=== PATIENT | female | born 1985 | race Caucasian/White ===

== ENCOUNTER 2017-09-25 16:28 | Emergency (ER) | payer BC ==
--- NOTE | 2017-09-25 17:19 | EDM.PDOC ---
ED HPI GENERAL MEDICAL PROBLEM - General Chief Complaint: ENT Problem Stated Complaint: SORE THROAT Time Seen by Provider: 09/25/17 17:11 - History of Present Illness INITIAL COMMENTS - FREE TEXT/NARRATIVE: HISTORY AND PHYSICAL: History of present illness: Patient 32-year-old white female presents with a concern of sore throat and possible strep she states she has a daughter with streptococcal pharyngitis currently. She denies other concern Review of systems: As per history of present illness and below otherwise all systems reviewed and negative. Past medical history: As per history of present illness and as reviewed below otherwise noncontributory. Surgical history: As per history of present illness and as reviewed below otherwise noncontributory. Social history: No reported history of drug or alcohol abuse. Family history: As per history of present illness and as reviewed below otherwise noncontributory. Physical exam: HEENT: Atraumatic, normocephalic, pupils reactive, negative for conjunctival pallor or scleral icterus, mucous membranes moist, throat injected, neck supple , nontender, trachea midline. Lungs: Clear to auscultation, breath sounds equal bilaterally, chest nontender. Heart: S1S2, regular, negative for clicks, rubs, or JVD. Abdomen: Soft, nondistended, nontender. Negative for masses or hepatosplenomegaly. Negative for costovertebral tenderness. Pelvis: Stable nontender. Genitourinary: Deferred. Rectal: Deferred. Extremities: Atraumatic, negative for cords or calf pain. Neurovascular unremarkable. Neuro: Awake, alert, oriented. Cranial nerves II through XII unremarkable. Cerebellum unremarkable. Motor and sensory unremarkable throughout. Exam nonfocal. Diagnostics: Deferred Therapeutics: None Impression: # 1 pharyngitis Definitive disposition and diagnosis as appropriate pending reevaluation and review of above. throat Pain Score (Numeric/FACES): 6 - Related Data Allergies Allergy/AdvReac Type Severity Reaction Status Date / Time codeine Allergy Vomiting Verified 09/25/17 17:08 Home Meds: Home Meds oxyCODONE 5 mg PO ONETIME PRN 09/25/17 [History] ED ROS GENERAL - Review of Systems Review Of Systems: ROS reveals no pertinent complaints other than HPI. ED EXAM, GENERAL - Physical Exam Exam: See Below (The dictation) Course - Vital Signs Text/Narrative:: Patient declined any diagnostics states she prefers empiric treatment light exposure and history of strep in the past. Last Recorded V/S: Last Vital Signs Temp 37.0 C 09/25/17 17:09 Pulse 105 H 09/25/17 17:09 Resp 16 09/25/17 17:09 BP 133/83 09/25/17 17:09 Pulse Ox 98 09/25/17 17:09 Departure - Departure Time of Disposition: 17:18 Disposition: Home, Self-Care 01 Condition: Good Clinical Impression: Pharyngitis - Discharge Information Referrals: PCP,None [Primary Care Provider] - Additional Instructions: The following information is given to patients seen in the emergency department who are being discharged to home. This information is to outline your options for follow-up care. We provide all patients seen in our emergency department with a follow-up referral. The need for follow-up, as well as the timing and circumstances, are variable depending upon the specifics of your emergency department visit. If you don't have a primary care physician on staff, we will provide you with a referral. We always advise you to contact your personal physician following an emergency department visit to inform them of the circumstance of the visit and for follow-up with them and/or the need for any referrals to a consulting specialist. The emergency department will also refer you to a specialist when appropriate. This referral assures that you have the opportunity for followup care with a specialist. All of these measure are taken in an effort to provide you with optimal care, which includes your followup. Under all circumstances we always encourage you to contact your private physician who remains a resource for coordinating your care. When calling for followup care, please make the office aware that this follow-up is from your recent emergency room visit. If for any reason you are refused follow-up, please contact the [facility] emergency department at and asked to speak to the emergency department charge nurse. Augmentin is prescribed Motrin/Tylenol as directed follow-up primary medical doctor 1-2 days return as needed as discussed
== END 2017-09-25 17:51 | disposition home or self-care (01) ==
LOC: MW.ED 16:28
DX: J02.9 Acute pharyngitis, unspecified (principal); Z88.5 Allergy status to narcotic agent
CPT/HCPCS: 99282; 99283

== ENCOUNTER 2020-03-27 02:53 | Day surgery (SDC) | payer BC, SELFPAY ==
[2020-03-27] MEDS ORDERED: Ondansetron 4 MG/2 ML SDV IVPUSH ONE (03:06)
[2020-03-27] MEDS ORDERED: fentaNYL 50 MCG/ML SDV IVPUSH ONE ×2 (03:06→05:22)
[2020-03-27] MEDS ORDERED: Sodium Chloride 0.9% 10 ML Syringe FLUSH PRN (03:06)
[2020-03-27] MEDS ORDERED: Lactated Ringers 1,000 ML IV ONE (03:06)
[2020-03-27] MEDS ORDERED: Sodium Chloride 0.9% 2.5 ML Syringe FLUSH PRN (03:06)
--- NOTE | 2020-03-27 03:08 | EDM.PDOC ---
ED HPI GENERAL MEDICAL PROBLEM - General Chief Complaint: Abdominal Pain Stated Complaint: ABDOMINAL PAIN Time Seen by Provider: 03/27/20 02:57 Source of Information: Reports: Patient History Limitations: Reports: No Limitations - History of Present Illness INITIAL COMMENTS - FREE TEXT/NARRATIVE: 34-year-old female past medical history of chronic back pain presenting with abdominal pain. Patient reports the onset of generalized abdominal pain around 6:00 this evening while at rest. Pain is constant, nothing makes it better or worse. Described as "aching". Rated as 10 out of 10. No history of prior pain. No self treatment prior to arrival. Complains of mild nausea but no emesis. Denies fever, hematemesis, diarrhea, rectal bleeding, dysuria, urinary frequency, hematuria, vaginal bleeding or discharge, sick contacts or international travel. Lower Abdomen Pain Score (Numeric/FACES): 8 - Related Data Allergies Allergy/AdvReac Type Severity Reaction Status Date / Time codeine Allergy Vomiting Verified 03/27/20 06:09 Home Meds: Home Meds oxyCODONE 10 mg PO Q6HR PRN 09/25/17 [History] Ondansetron [Ondansetron ODT] 4 mg PO ASDIRECTED PRN 03/27/20 [History] Rizatriptan Benzoate [Rizatriptan] 10 mg PO ASDIRECTED PRN 03/27/20 [History] Past Medical History Cardiovascular History: Reports: Other (See Below) Other Cardiovascular History: palpitations Respiratory History: Reports: Other (See Below) Other Respiratory History: seasonal allergies [employer] History: Reports: Musculoskeletal History: Reports: Back Pain, Chronic - Infectious Disease History Infectious Disease History: Reports: None - Past Surgical History Female Surgical History: Reports: D&C Social & Family History - Family History Family Medical History: Noncontributory - Caffeine Use Caffeine Use: Reports: None ED ROS GENERAL - Review of Systems Review Of Systems: See Below Constitutional: Denies: Fever, Chills HEENT: Reports: No Symptoms Respiratory: Denies: Shortness of Breath Cardiovascular: Denies: Chest Pain Endocrine: Reports: No Symptoms GI/Abdominal: Reports: Abdominal Pain, Nausea. Denies: Black Stool, Bloody Stool, Constipation, Diarrhea, Distension, Hematemesis, Hematochezia, Melena, Vomiting : Denies: Discharge, Dysuria, Flank Pain, Frequency, Hematuria, Pain Musculoskeletal: Denies: Back Pain Skin: Denies: Lesions Neurological: Denies: Headache Psychiatric: Reports: No Symptoms ED EXAM, GI/ABD - Physical Exam Exam: See Below Text/Narrative:: Vital signs reviewed. Nursing notes reviewed. Constitutional: Awake, alert, appears uncomfortable, tearful. Head: Normocephalic, atraumatic. Eyes: EOMI, conjunctiva normal, no discharge, no scleral icterus. Ears, Nose, Throat: External ears and nose normal, moist oral mucosa. Cardiovascular: 2+ radial pulse, capillary refill less than 2 seconds. Pulmonary: normal work of breathing, no accessory muscle use. Abdomen/GI: Soft, mild diffuse tenderness, nondistended, no guarding or rigidity, no masses. No tenderness to McBurney's point, negative Agudelo sign. Musculoskeletal: No deformities. Integumentary: Appropriate color for ethnicity, warm, dry, no pallor or jaundice, no rash. Neurologic: Alert, answering questions appropriately, normal speech, no facial droop, moving all extremities well. Psychiatric: normal effect Course - Vital Signs Text/Narrative:: Patient hemodynamically stable, afebrile, well-appearing, looks nontoxic. Differential diagnosis includes but is not limited to: Appendicitis, perforation, intra-abdominal infection, mesenteric ischemia, colitis, bowel obstruction, ileus, ectopic , epiploic appendagitis, acute ch olecystitis, biliary colic, pancreatitis, AAA, UTI, pyelonephritis, etc. Blood cultures drawn x2. Labs show leukocytosis with neutrophilic predominance. Normal lactate. Negative . Normal LFTs and electrolytes. Urinalysis bland. CT abdomen/pelvis is consistent with uncomplicated appendicitis. Patient made n.p.o., given IV Zosyn. Pain well controlled after initial IV fentanyl and nausea resolved after Zofran. I paged the on-call surgeon Dr. Kadie White who requested that the patient be placed on same-day surgery status. She will be transferred to an inpatient room awaiting surgical evaluation with anticipation of likely operative intervention later today. Last Recorded V/S: Last Vital Signs Temp 36.0 C L 03/27/20 03:04 Pulse 91 03/27/20 05:00 Resp 14 03/27/20 05:00 BP 118/80 03/27/20 05:00 Pulse Ox 98 03/27/20 05:00 - Orders/Labs/Meds Orders: Active Orders 24 hr Category Date Time Status Admission Status [Patient Status] [ADT] Stat ADT 03/27/20 05:11 Active Pulse Oximetry [RC] ASDIRECTED Care 03/27/20 03:06 Active NPO [Nothing Per Oral Diet] [DIET] Diet 03/27/20 Breakfast Active Nothing per Oral Now Diet [DIET] Diet 03/27/20 Breakfast Active CULTURE BLOOD [BC] Stat Lab 03/27/20 03:48 Received CULTURE BLOOD [BC] Stat Lab 03/27/20 04:05 Results HYDROmorphone [Dilaudid] Med 03/27/20 05:22 Active 0.5 mg IVPUSH Q1H PRN Lactated Ringers [Ringers, Lactated] 1,000 ml Med 03/27/20 05:30 Active IV ASDIRECTED Ondansetron [Zofran] Med 03/27/20 05:56 Active 4 mg IVPUSH Q6H PRN Sodium Chloride 0.9% [Saline Flush] Med 03/27/20 03:06 Active 10 ml FLUSH ASDIRECTED PRN Sodium Chloride 0.9% [Saline Flush] Med 03/27/20 03:06 Active 2.5 ml FLUSH ASDIRECTED PRN Blood Culture x2 Reflex Set [OM.PC] Stat Oth 03/27/20 03:36 Ordered Saline Lock Insert [OM.PC] Stat Oth 03/27/20 03:06 Ordered Medication Orders Hydromorphone HCl (Dilaudid) 0.5 mg IVPUSH Q1H PRN PRN Reason: Abdominal Pain Lactated Ringer's (Ringers, Lactated) 1,000 mls @ 125 mls/hr IV ASDIRECTED [facility] Last Admin: 03/27/20 06:17 Dose: 125 mls/hr Documented by: GEORGI Ondansetron HCl (Zofran) 4 mg IVPUSH Q6H PRN PRN Reason: Nausea/Vomiting Sodium Chloride (Saline Flush) 10 ml FLUSH ASDIRECTED PRN PRN Reason: Keep Vein Open Sodium Chloride (Saline Flush) 2.5 ml FLUSH ASDIRECTED PRN PRN Reason: Keep Vein Open Labs: Laboratory Tests 03/27/20 03/27/20 03/27/20 Range/Units 03:10 03:22 03:22 WBC 17.66 H (4.0-11.0) K/uL RBC 4.41 (4.30-5.90) M/uL Hgb 13.9 (12.0-16.0) g/dL Hct 41.7 (36.0-46.0) % MCV 94.6 (80.0-98.0) fL MCH 31.5 (27.0-32.0) pg MCHC 33.3 (31.0-37.0) g/dL RDW Std Deviation 41.7 (28.0-62.0) fl RDW Coeff of Anatoliy 12 (11.0-15.0) % Plt Count 258 (150-400) K/uL MPV 11.10 (7.40-12.00) fL Neut % (Auto) 86.4 H (48.0-80.0) % Lymph % (Auto) 7.0 L (16.0-40.0) % [place] % (Auto) 5.9 (0.0-15.0) % Eos % (Auto) 0.5 (0.0-7.0) % Baso % (Auto) 0.2 (0.0-1.5) % Neut # (Auto) 15.3 H (1.4-5.7) K/uL Lymph # (Auto) 1.2 (0.6-2.4) K/uL [place] # (Auto) 1.1 H (0.0-0.8) K/uL Eos # (Auto) 0.1 (0.0-0.7) K/uL Baso # (Auto) 0.0 (0.0-0.1) K/uL Nucleated RBC % 0.0 /100WBC Nucleated RBCs # 0 K/uL Lactate 1.2 (0.20-2.00) mmol/L Sodium (136-145) mmol/L Potassium (3.5-5.1) mmol/L Chloride (98-107) mmol/L Carbon Dioxide (21.0-32.0) mmol/L BUN (7.0-18.0) mg/dL Creatinine (0.6-1.0) mg/dL Est Cr Clr Drug Dosing mL/min Estimated GFR (MDRD) ml/min Glucose (74-106) mg/dL Calcium (8.5-10.1) mg/dL Total Bilirubin (0.2-1.0) mg/dL AST (15-37) IU/L ALT (14-63) IU/L Alkaline Phosphatase (46-116) U/L Total Protein (6.4-8.2) g/dL Albumin (3.4-5.0) g/dL Globulin (2.6-4.0) g/dL Albumin/Globulin Ratio (0.9-1.6) Lipase (73-393) U/L HCG, Qual (NEG) Urine Color YELLOW Urine Appearance CLEAR Urine pH 6.5 (5.0-8.0) Ur Specific [place] 1.025 (1.001-1.035) Urine Protein NEGATIVE (NEGATIVE) mg/dL Urine Glucose (UA) NEGATIVE (NEGATIVE) mg/dL Urine Ketones NEGATIVE (NEGATIVE) mg/dL Urine Occult Blood NEGATIVE (NEGATIVE) Urine Nitrite NEGATIVE (NEGATIVE) Urine Bilirubin NEGATIVE (NEGATIVE) Urine Urobilinogen 0.2 (<2.0) EU/dL Ur Leukocyte Esterase NEGATIVE (NEGATIVE) SARS-CoV-2 RNA (RT-PCR) (NEGATIVE) Blood Type Antibody Screen 03/27/20 03/27/20 03/27/20 Range/Units 03:22 03:22 05:20 WBC (4.0-11.0) K/uL RBC (4.30-5.90) M/uL Hgb (12.0-16.0) g/dL Hct (36.0-46.0) % MCV (80.0-98.0) fL MCH (27.0-32.0) pg MCHC (31.0-37.0) g/dL RDW Std Deviation (28.0-62.0) fl RDW Coeff of Anatoliy (11.0-15.0) % Plt Count (150-400) K/uL MPV (7.40-12.00) fL Neut % (Auto) (48.0-80.0) % Lymph % (Auto) (16.0-40.0) % Sierra % (Auto) (0.0-15.0) % Eos % (Auto) (0.0-7.0) % Baso % (Auto) (0.0-1.5) % Neut # (Auto) (1.4-5.7) K/uL Lymph # (Auto) (0.6-2.4) K/uL Sierra # (Auto) (0.0-0.8) K/uL Eos # (Auto) (0.0-0.7) K/uL Baso # (Auto) (0.0-0.1) K/uL Nucleated RBC % /100WBC Nucleated RBCs # K/uL Lactate (0.20-2.00) mmol/L Sodium 140 (136-145) mmol/L Potassium 3.5 (3.5-5.1) mmol/L Chloride 105 (98-107) mmol/L Carbon Dioxide 25.7 (21.0-32.0) mmol/L BUN 7 (7.0-18.0) mg/dL Creatinine 0.8 (0.6-1.0) mg/dL Est Cr Clr Drug Dosing 75.48 mL/min Estimated GFR (MDRD) > 60.0 ml/min Glucose 105 (74-106) mg/dL Calcium 8.2 L (8.5-10.1) mg/dL Total Bilirubin 0.3 (0.2-1.0) mg/dL AST 12 L (15-37) IU/L ALT 16 (14-63) IU/L Alkaline Phosphatase 70 (46-116) U/L Total Protein 6.8 (6.4-8.2) g/dL Albumin 3.8 (3.4-5.0) g/dL Globulin 3.0 (2.6-4.0) g/dL Albumin/Globulin Ratio 1.3 (0.9-1.6) Lipase 40 L (73-393) U/L HCG, Qual NEGATIVE (NEG) Urine Color Urine Appearance Urine pH (5.0-8.0) Ur Specific [place] (1.001-1.035) Urine Protein (NEGATIVE) mg/dL Urine Glucose (UA) (NEGATIVE) mg/dL Urine Ketones (NEGATIVE) mg/dL Urine Occult Blood (NEGATIVE) Urine Nitrite (NEGATIVE) Urine Bilirubin (NEGATIVE) Urine Urobilinogen (<2.0) EU/dL Ur Leukocyte Esterase (NEGATIVE) SARS-CoV-2 RNA (RT-PCR) (NEGATIVE) Blood Type O POSITIVE Antibody Screen NEGATIVE 07/02/20 Range/Units 05:20 WBC (4.0-11.0) K/uL RBC (4.30-5.90) M/uL Hgb (12.0-16.0) g/dL Hct (36.0-46.0) % MCV (80.0-98.0) fL MCH (27.0-32.0) pg MCHC (31.0-37.0) g/dL RDW Std Deviation (28.0-62.0) fl RDW Coeff of Anatoliy (11.0-15.0) % Plt Count (150-400) K/uL MPV (7.40-12.00) fL Neut % (Auto) (48.0-80.0) % Lymph % (Auto) (16.0-40.0) % [place] % (Auto) (0.0-15.0) % Eos % (Auto) (0.0-7.0) % Baso % (Auto) (0.0-1.5) % Neut # (Auto) (1.4-5.7) K/uL Lymph # (Auto) (0.6-2.4) K/uL Sierra # (Auto) (0.0-0.8) K/uL Eos # (Auto) (0.0-0.7) K/uL Baso # (Auto) (0.0-0.1) K/uL Nucleated RBC % /100WBC Nucleated RBCs # K/uL Lactate (0.20-2.00) mmol/L Sodium (136-145) mmol/L Potassium (3.5-5.1) mmol/L Chloride (98-107) mmol/L Carbon Dioxide (21.0-32.0) mmol/L BUN (7.0-18.0) mg/dL Creatinine (0.6-1.0) mg/dL Est Cr Clr Drug Dosing mL/min Estimated GFR (MDRD) ml/min Glucose (74-106) mg/dL Calcium (8.5-10.1) mg/dL Total Bilirubin (0.2-1.0) mg/dL AST (15-37) IU/L ALT (14-63) IU/L Alkaline Phosphatase (46-116) U/L Total Protein (6.4-8.2) g/dL Albumin (3.4-5.0) g/dL Globulin (2.6-4.0) g/dL Albumin/Globulin Ratio (0.9-1.6) Lipase (73-393) U/L HCG, Qual (NEG) Urine Color Urine Appearance Urine pH (5.0-8.0) Ur Specific [place] (1.001-1.035) Urine Protein (NEGATIVE) mg/dL Urine Glucose (UA) (NEGATIVE) mg/dL Urine Ketones (NEGATIVE) mg/dL Urine Occult Blood (NEGATIVE) Urine Nitrite (NEGATIVE) Urine Bilirubin (NEGATIVE) Urine Urobilinogen (<2.0) EU/dL Ur Leukocyte Esterase (NEGATIVE) SARS-CoV-2 RNA (RT-PCR) NEGATIVE (NEGATIVE) Blood Type Antibody Screen Meds: Medications Generic Name Dose Route Start Last Admin Trade Name Heidi PRN Reason Stop Dose Admin Hydromorphone HCl 0.5 mg 03/27/20 05:22 Dilaudid IVPUSH Q1H PRN Abdominal Pain Lactated Ringer's 1,000 mls @ 125 mls/hr 03/27/20 05:30 03/27/20 06:17 Ringers, Lactated IV 125 mls/hr ASDIRECTED JOSEPH Administration Ondansetron HCl 4 mg 03/27/20 05:56 Zofran IVPUSH Q6H PRN Nausea/Vomiting Sodium Chloride 10 ml 03/27/20 03:06 Saline Flush FLUSH ASDIRECTED PRN Keep Vein Open Sodium Chloride 2.5 ml 03/27/20 03:06 Saline Flush FLUSH ASDIRECTED PRN Keep Vein Open Discontinued Medications Generic Name Dose Route Start Last Admin Trade Name Heidi PRN Reason Stop Dose Admin Fentanyl 50 mcg 03/27/20 03:06 03/27/20 03:23 Fentanyl IVPUSH 03/27/20 03:07 50 mcg ONETIME ONE Administration Fentanyl 50 mcg 03/27/20 05:22 03/27/20 05:28 Fentanyl IVPUSH 03/27/20 05:23 50 mcg ONETIME ONE Administration Fentanyl Confirm 03/27/20 05:23 03/27/20 05:30 Fentanyl Administered 03/27/20 05:24 Not Given Dose 50 mcg .ROUTE .STK-MED ONE Lactated Ringer's 1,000 mls @ 999 mls/hr 03/27/20 03:06 03/27/20 03:19 Ringers, Lactated IV 03/27/20 04:06 999 mls/hr .BOLUS ONE Administration Piperacillin Sod/Tazobactam 50 mls @ 100 mls/hr 03/27/20 05:04 03/27/20 05:27 Sod 3.375 gm/ Sodium Chloride IV 03/27/20 05:33 100 mls/hr ONETIME ONE Administration Iopamidol 65 ml 03/27/20 05:51 03/27/20 05:53 Isovue-[id number] (76%) IVPUSH 03/27/20 05:52 65 ml ONETIME STA Administration Ondansetron HCl 4 mg 03/27/20 03:06 03/27/20 03:19 Zofran IVPUSH 03/27/20 03:07 4 mg ONETIME ONE Administration Departure - Departure Time of Disposition: 05:12 Disposition: Refer to Observation Condition: Good Clinical Impression: Acute appendicitis Qualifiers: Acute appendicitis type: unspecified acute appendicitis type Qualified Code(s): K35.80 - Unspecified acute appendicitis - Discharge Information Sepsis Event Note (ED) - Evaluation Sepsis Screening Result: No Definite Risk - Focused Exam Vital Signs: Vital Signs Temp Pulse Resp BP Pulse Ox 03/27/20 05:00 91 14 118/80 98 03/27/20 03:04 36.0 C L 93 18 128/93 H 100 - My Orders Last 24 Hours: My Active Orders 03/27/20 03:06 Pulse Oximetry [RC] ASDIRECTED Sodium Chloride 0.9% [Saline Flush] 10 ml FLUSH ASDIRECTED PRN Sodium Chloride 0.9% [Saline Flush] 2.5 ml FLUSH ASDIRECTED PRN Saline Lock Insert [OM.PC] Stat 03/27/20 03:36 Blood Culture x2 Reflex Set [OM.PC] Stat 03/27/20 03:48 CULTURE BLOOD [BC] Stat 03/27/20 04:05 CULTURE BLOOD [BC] Stat 03/27/20 05:11 Admission Status [Patient Status] [ADT] Stat 03/27/20 Breakfast NPO [Nothing Per Oral Diet] [DIET] - Assessment/Plan Last 24 Hours: My Active Orders 03/27/20 03:06 Pulse Oximetry [RC] ASDIRECTED Sodium Chloride 0.9% [Saline Flush] 10 ml FLUSH ASDIRECTED PRN Sodium Chloride 0.9% [Saline Flush] 2.5 ml FLUSH ASDIRECTED PRN Saline Lock Insert [OM.PC] Stat 03/27/20 03:36 Blood Culture x2 Reflex Set [OM.PC] Stat 03/27/20 03:48 CULTURE BLOOD [BC] Stat 03/27/20 04:05 CULTURE BLOOD [BC] Stat 03/27/20 05:11 Admission Status [Patient Status] [ADT] Stat 03/27/20 Breakfast NPO [Nothing Per Oral Diet] [DIET]
[2020-03-27 03:48] LABS: BLOOD UREA NITROGEN,BUN 7 mg/dL (7.0-18.0); CARBON DIOXIDE,CO2 25.7 mmol/L (21.0-32.0); CHLORIDE,CL 105 mmol/L (98-107); GLUCOSE RANDOM 105 mg/dL (74-106); LIPASE 40 U/L (73-393); POTASSIUM,K 3.5 mmol/L (3.5-5.1); SODIUM,NA 140 mmol/L (136-145)
--- NOTE | 2020-03-27 04:59 | CT ---
INDICATION: Generalized abdominal pain TECHNIQUE: CT Abdomen and pelvis with i.v. contrast. Coronal and sagittal reformats were obtained. CONTRAST: 65 mL Isovue 370 COMPARISON: None FINDINGS: Lower chest: Unremarkable. Liver: Unremarkable. Spleen: Unremarkable. Pancreas: Unremarkable. Gallbladder: Unremarkable. Kidney: Unremarkable. No kidney or ureteral stones or obstruction seen. Adrenal: Unremarkable. Bowel: Unremarkable. The appendix is distended measuring 11 mm. There is moderate wall thickening and surrounding inflammatory changes noted. No periappendiceal abscess is seen. Vascular: Unremarkable. Lymph: Unremarkable. Peritoneum: Unremarkable. No pneumoperitoneum is seen. Trace amount of ascites is present and is likely physiologic in origin. Pelvis: Unremarkable. Soft tissue: Unremarkable. Bone: Unremarkable for age. IMPRESSION: 1. The appendix is distended measuring 11 mm. There is moderate wall thickening and surrounding inflammatory changes noted. No periappendiceal abscess is seen. These findings are consistent with acute appendicitis. Dictated by Hieu Sauceda MD @ 03/27/2020 4:59:02 AM Please note that all CT scans at this facility use dose modulation, iterative reconstruction, and/or weight-based dosing when appropriate to reduce radiation dose to as low as reasonably achievable. Dictated by: Hieu Sauceda MD @ 03/27/2020 04:59:08 (Electronically Signed)
[2020-03-27] MEDS ORDERED: Piperacillin/Tazobactam 3.375 GM in Sodium Chloride 0.9% 50 ML IV ONE (05:04)
[2020-03-27] MEDS ORDERED: HYDROmorphone 1 MG/ML Syringe IVPUSH PRN ×2 (05:22→12:52)
[2020-03-27] MEDS ORDERED: fentaNYL 50 MCG/ML SDV ONE (05:23)
[2020-03-27] MEDS ORDERED: Lactated Ringers 1,000 ML IV SCH (05:30)
[2020-03-27] MEDS ORDERED: Ondansetron 4 MG/2 ML SDV IVPUSH SCH (05:30)
[2020-03-27] MEDS ORDERED: Iopamidol 755 Mg/ML 100 ML Bottle IVPUSH STA (05:51)
[2020-03-27] MEDS ORDERED: Ondansetron 4 MG/2 ML SDV IVPUSH PRN (05:56)
[2020-03-27] MEDS ORDERED: fentaNYL 100 MCG/2 ML SDV IVPUSH PRN (08:00)
--- NOTE | 2020-03-27 08:24 | PCM.PREANE ---
Preanesthetic Assessment - Anesthesia/Transfusion/Family Hx Anesthesia History: Prior Anesthesia Without Reaction Family History of Anesthesia Reaction: No Transfusion History: Prior Transfusion Without Reaction - Review of Systems General: Other (chronic low back pain without a diagnosis, receiving oxycodone 5 mg, 10 tabs/day from physician in [place]. ) Pulmonary: No Symptoms Cardiovascular: No Symptoms Gastrointestinal: Abdominal Pain - Physical Assessment NPO Status Date: 03/26/20 Vital Signs: Last Vital Signs Temp 97.5 F 03/27/20 08:00 Pulse 69 03/27/20 08:00 Resp 12 03/27/20 08:00 BP 98/56 L 03/27/20 08:00 Pulse Ox 98 03/27/20 08:00 Height: 5 ft 1 in Weight: 49.4 kg ASA Class: 2 Mental Status: Alert & Oriented x3 Airway Class: Mallampati = 2 Dentition: Reports: Normal Dentition ROM/Head Extension: Full Lungs: Clear to Auscultation, Normal Respiratory Effort Cardiovascular: Regular Rate, Regular Rhythm - Lab Values: Laboratory Last Values WBC 17.66 K/uL (4.0-11.0) H 03/27/20 03:22 RBC 4.41 M/uL (4.30-5.90) 03/27/20 03:22 Hgb 13.9 g/dL (12.0-16.0) 03/27/20 03:22 Hct 41.7 % (36.0-46.0) 03/27/20 03:22 MCV 94.6 fL (80.0-98.0) 03/27/20 03:22 MCH 31.5 pg (27.0-32.0) 03/27/20 03:22 MCHC 33.3 g/dL (31.0-37.0) 03/27/20 03:22 RDW Std Deviation 41.7 fl (28.0-62.0) 03/27/20 03:22 RDW Coeff of Anatoliy 12 % (11.0-15.0) 03/27/20 03:22 Plt Count 258 K/uL (150-400) 03/27/20 03:22 MPV 11.10 fL (7.40-12.00) 03/27/20 03:22 Neut % (Auto) 86.4 % (48.0-80.0) H 03/27/20 03:22 Lymph % (Auto) 7.0 % (16.0-40.0) L 03/27/20 03:22 [place] % (Auto) 5.9 % (0.0-15.0) 03/27/20 03:22 Eos % (Auto) 0.5 % (0.0-7.0) 03/27/20 03:22 Baso % (Auto) 0.2 % (0.0-1.5) 03/27/20 03:22 Neut # (Auto) 15.3 K/uL (1.4-5.7) H 03/27/20 03:22 Lymph # (Auto) 1.2 K/uL (0.6-2.4) 03/27/20 03:22 [place] # (Auto) 1.1 K/uL (0.0-0.8) H 03/27/20 03:22 Eos # (Auto) 0.1 K/uL (0.0-0.7) 03/27/20 03:22 Baso # (Auto) 0.0 K/uL (0.0-0.1) 03/27/20 03:22 Nucleated RBC % 0.0 /100WBC 03/27/20 03:22 Nucleated RBCs # 0 K/uL 03/27/20 03:22 Lactate 1.2 mmol/L (0.20-2.00) 03/27/20 03:22 Sodium 140 mmol/L (136-145) 03/27/20 03:22 Potassium 3.5 mmol/L (3.5-5.1) 03/27/20 03:22 Chloride 105 mmol/L (98-107) 03/27/20 03:22 Carbon Dioxide 25.7 mmol/L (21.0-32.0) 03/27/20 03:22 BUN 7 mg/dL (7.0-18.0) 03/27/20 03:22 Creatinine 0.8 mg/dL (0.6-1.0) 03/27/20 03:22 Est Cr Clr Drug Dosing 75.48 mL/min 03/27/20 03:22 Estimated GFR (MDRD) > 60.0 ml/min 03/27/20 03:22 Glucose 105 mg/dL (74-106) 03/27/20 03:22 Calcium 8.2 mg/dL (8.5-10.1) L 03/27/20 03:22 Total Bilirubin 0.3 mg/dL (0.2-1.0) 03/27/20 03:22 AST 12 IU/L (15-37) L 03/27/20 03:22 ALT 16 IU/L (14-63) 03/27/20 03:22 Alkaline Phosphatase 70 U/L (46-116) 03/27/20 03:22 Total Protein 6.8 g/dL (6.4-8.2) 03/27/20 03:22 Albumin 3.8 g/dL (3.4-5.0) 03/27/20 03:22 Globulin 3.0 g/dL (2.6-4.0) 03/27/20 03:22 Albumin/Globulin Ratio 1.3 (0.9-1.6) 03/27/20 03:22 Lipase 40 U/L (73-393) L 03/27/20 03:22 HCG, Qual NEGATIVE (NEG) 03/27/20 03:22 Urine Color YELLOW 03/27/20 03:10 Urine Appearance CLEAR 03/27/20 03:10 Urine pH 6.5 (5.0-8.0) 03/27/20 03:10 Ur Specific [place] 1.025 (1.001-1.035) 03/27/20 03:10 Urine Protein NEGATIVE mg/dL (NEGATIVE) 03/27/20 03:10 Urine Glucose (UA) NEGATIVE mg/dL (NEGATIVE) 03/27/20 03:10 Urine Ketones NEGATIVE mg/dL (NEGATIVE) 03/27/20 03:10 Urine Occult Blood NEGATIVE (NEGATIVE) 03/27/20 03:10 Urine Nitrite NEGATIVE (NEGATIVE) 03/27/20 03:10 Urine Bilirubin NEGATIVE (NEGATIVE) 03/27/20 03:10 Urine Urobilinogen 0.2 EU/dL (<2.0) 03/27/20 03:10 Ur Leukocyte Esterase NEGATIVE (NEGATIVE) 03/27/20 03:10 SARS-CoV-2 RNA (RT-PCR) NEGATIVE (NEGATIVE) 03/27/20 05:20 Blood Type O POSITIVE 03/27/20 05:20 Antibody Screen NEGATIVE 03/27/20 05:20 - Allergies Allergies/Adverse Reactions: Allergies Allergy/AdvReac Type Severity Reaction Status Date / Time codeine Allergy Vomiting Verified 03/27/20 06:09 - Blood Blood Available: No - Acknowledgements Anesthesia Type Planned: General Anesthesia Pt an Appropriate Candidate for the Planned Anesthesia: Yes Alternatives and Risks of Anesthesia Discussed w Pt/Guardian: Yes Pt/Guardian Understands and Agrees with Anesthesia Plan: Yes Additional Comments: PMH: acute appendicitis, opioid use disorder PLAN: get, use ketamine, iv aceta, NSAIDs for pain, PreAnesthesia Questionnaire HEENT History: Reports: None Cardiovascular History: Reports: Other (See Below) Other Cardiovascular History: palpitations Respiratory History: Reports: Other (See Below) Other Respiratory History: seasonal allergies Gastrointestinal History: Reports: None Genitourinary History: Reports: Other (See Below) Other Genitourinary History: Several D&Cs 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: Musculoskeletal History: Reports: Back Pain, Chronic Neurological History: Reports: None Psychiatric History: Reports: None Endocrine/Metabolic History: Reports: None Hematologic History: Reports: None Immunologic History: Reports: None Oncologic (Cancer) History: Reports: None Dermatologic History: Reports: None - Infectious Disease History Infectious Disease History: Reports: None - Past Surgical History Female Surgical History: Reports: D&C - SUBSTANCE USE Smoking Status *Q: Current Every Day Smoker Tobacco Use Within Last Twelve Months: Cigarettes Second Hand Smoke Exposure: Yes Recreational Drug Use History: No - HOME MEDS Home Medications: Home Meds oxyCODONE 10 mg PO Q6HR PRN 09/25/17 [History] Ondansetron [Ondansetron ODT] 4 mg PO ASDIRECTED PRN 03/27/20 [History] Rizatriptan Benzoate [Rizatriptan] 10 mg PO ASDIRECTED PRN 03/27/20 [History] - CURRENT (IN HOUSE) MEDS Current Meds: Current Medications Fentanyl (Sublimaze) 50 mcg IVPUSH Q5M PRN PRN Reason: Pain (severe 7-10) Stop: 03/28/20 08:00 Hydromorphone HCl (Dilaudid) 0.5 mg IVPUSH Q1H PRN PRN Reason: Abdominal Pain Last Admin: 03/27/20 07:52 Dose: 0.5 mg Documented by: Lactated Ringer's (Ringers, Lactated) 1,000 mls @ 125 mls/hr IV ASDIRECTED JOSEPH Last Admin: 03/27/20 06:17 Dose: 125 mls/hr Documented by: Ondansetron HCl (Zofran) 4 mg IVPUSH Q6H PRN PRN Reason: Nausea/Vomiting Sodium Chloride (Saline Flush) 10 ml FLUSH ASDIRECTED PRN PRN Reason: Keep Vein Open Sodium Chloride (Saline Flush) 2.5 ml FLUSH ASDIRECTED PRN PRN Reason: Keep Vein Open Discontinued Medications Fentanyl (Fentanyl) 50 mcg IVPUSH ONETIME ONE Stop: 03/27/20 03:07 Last Admin: 03/27/20 03:23 Dose: 50 mcg Documented by: Fentanyl (Fentanyl) 50 mcg IVPUSH ONETIME ONE Stop: 03/27/20 05:23 Last Admin: 03/27/20 05:28 Dose: 50 mcg Documented by: Fentanyl (Fentanyl) Confirm Administered Dose 50 mcg .ROUTE .STK-MED ONE Stop: 03/27/20 05:24 Last Admin: 03/27/20 05:30 Dose: Not Given Documented by: Lactated Ringer's (Ringers, Lactated) 1,000 mls @ 999 mls/hr IV .BOLUS ONE Stop: 03/27/20 04:06 Last Admin: 03/27/20 03:19 Dose: 999 mls/hr Documented by: Piperacillin Sod/Tazobactam (Sod 3.375 gm/ Sodium Chloride) 50 mls @ 100 mls/hr IV ONETIME ONE Stop: 03/27/20 05:33 Last Admin: 03/27/20 05:27 Dose: 100 mls/hr Documented by: Iopamidol ([id number] (76%)) 65 ml IVPUSH ONETIME STA Stop: 03/27/20 05:52 Last Admin: 03/27/20 05:53 Dose: 65 ml Documented by: Ondansetron HCl (Zofran) 4 mg IVPUSH ONETIME ONE Stop: 03/27/20 03:07 Last Admin: 03/27/20 03:19 Dose: 4 mg Documented by:
[2020-03-27] MEDS ORDERED: Ketamine 500 mg/10 ML MDV ONE (09:40)
[2020-03-27] MEDS ORDERED: Bupivacaine 0.5% 30 ML SDV ONE (09:50)
--- NOTE | 2020-03-27 10:11 | PCM.HP.2 ---
H&P History of Present Illness - General Date of Service: 03/27/20 Admit Problem/Dx: Admission Diagnosis/Problem Admission Diagnosis/Problem Acute appendicitis Source of Information: Patient History Limitations: Reports: No Limitations - History of Present Illness Initial Comments - Free Text/Narative: Patient is a 34 year old female with chronic back pain taking chronic opioids who presents with lower abdominal pain. It started yesterday morning. She thought she had food poisoning but then she developed pain around 6pm. The pain kept worsening and did not improve. She denies fevers, chills, nausea or vomiting. Lower Abdomen Pain Score (Numeric/FACES): 8 - Related Data Allergies/Adverse Reactions: Allergies Allergy/AdvReac Type Severity Reaction Status Date / Time codeine Allergy Vomiting Verified 03/27/20 06:09 Home Medications: Home Meds oxyCODONE 10 mg PO Q6HR PRN 09/25/17 [History] Ondansetron [Ondansetron ODT] 4 mg PO ASDIRECTED PRN 03/27/20 [History] Rizatriptan Benzoate [Rizatriptan] 10 mg PO ASDIRECTED PRN 03/27/20 [History] Past Medical History HEENT History: Reports: None Cardiovascular History: Reports: Other (See Below) Other Cardiovascular History: palpitations Respiratory History: Reports: Other (See Below) Other Respiratory History: seasonal allergies Gastrointestinal History: Reports: None Genitourinary History: Reports: Other (See Below) Other Genitourinary History: Several D&Cs 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: Musculoskeletal History: Reports: Back Pain, Chronic Neurological History: Reports: None Psychiatric History: Reports: None Endocrine/Metabolic History: Reports: None Hematologic History: Reports: None Immunologic History: Reports: None Oncologic (Cancer) History: Reports: None Dermatologic History: Reports: None - Infectious Disease History Infectious Disease History: Reports: None - Past Surgical History Female Surgical History: Reports: D&C Social & Family History - Family History Family Medical History: Noncontributory - Tobacco Use Smoking Status *Q: Current Every Day Smoker Years of Tobacco use: 15 Packs/Tins Daily: 1 Used Tobacco, but Quit: No Tobacco Use Comment: Smoking cessation education given Second Hand Smoke Exposure: Yes - Caffeine Use Caffeine Use: Reports: None - Recreational Drug Use Recreational Drug Use: No H&P Review of Systems - Review of Systems: Review Of Systems: Comprehensive ROS is negative, except as noted in HPI. Exam - Exam Exam: See Below - Vital Signs Vital Signs: Last Vital Signs Temp 36.4 C 03/27/20 08:00 Pulse 69 03/27/20 08:00 Resp 12 03/27/20 08:00 BP 98/56 L 03/27/20 08:00 Pulse Ox 98 03/27/20 08:00 Weight: 49.4 kg - Exam General: Alert, Oriented, Cooperative HEENT: Conjunctiva Clear, Mucosa Moist & [place], Posterior Pharynx Clear Neck: Supple, Trachea Midline Lungs: Clear to Auscultation, Normal Respiratory Effort Cardiovascular: Regular Rate, Regular Rhythm GI/Abdominal Exam: Soft, No Distention, No Mass, Tender (Suprapubic midline tenderness). No: Guarding, Rigid, Rebound Extremities: Normal Inspection - Patient Data Lab Results Last 24 hrs: Laboratory Results - last 24 hr 03/27/20 03/27/20 03/27/20 Range/Units 03:10 03:22 03:22 WBC 17.66 H (4.0-11.0) K/uL RBC 4.41 (4.30-5.90) M/uL Hgb 13.9 (12.0-16.0) g/dL Hct 41.7 (36.0-46.0) % MCV 94.6 (80.0-98.0) fL MCH 31.5 (27.0-32.0) pg MCHC 33.3 (31.0-37.0) g/dL RDW Std Deviation 41.7 (28.0-62.0) fl RDW Coeff of Anatoliy 12 (11.0-15.0) % Plt Count 258 (150-400) K/uL MPV 11.10 (7.40-12.00) fL Neut % (Auto) 86.4 H (48.0-80.0) % Lymph % (Auto) 7.0 L (16.0-40.0) % [place] % (Auto) 5.9 (0.0-15.0) % Eos % (Auto) 0.5 (0.0-7.0) % Baso % (Auto) 0.2 (0.0-1.5) % Neut # (Auto) 15.3 H (1.4-5.7) K/uL Lymph # (Auto) 1.2 (0.6-2.4) K/uL [place] # (Auto) 1.1 H (0.0-0.8) K/uL Eos # (Auto) 0.1 (0.0-0.7) K/uL Baso # (Auto) 0.0 (0.0-0.1) K/uL Nucleated RBC % 0.0 /100WBC Nucleated RBCs # 0 K/uL Lactate 1.2 (0.20-2.00) mmol/L Sodium (136-145) mmol/L Potassium (3.5-5.1) mmol/L Chloride (98-107) mmol/L Carbon Dioxide (21.0-32.0) mmol/L BUN (7.0-18.0) mg/dL Creatinine (0.6-1.0) mg/dL Est Cr Clr Drug Dosing mL/min Estimated GFR (MDRD) ml/min Glucose (74-106) mg/dL Calcium (8.5-10.1) mg/dL Total Bilirubin (0.2-1.0) mg/dL AST (15-37) IU/L ALT (14-63) IU/L Alkaline Phosphatase (46-116) U/L Total Protein (6.4-8.2) g/dL Albumin (3.4-5.0) g/dL Globulin (2.6-4.0) g/dL Albumin/Globulin Ratio (0.9-1.6) Lipase (73-393) U/L HCG, Qual (NEG) Urine Color YELLOW Urine Appearance CLEAR Urine pH 6.5 (5.0-8.0) Ur Specific [place] 1.025 (1.001-1.035) Urine Protein NEGATIVE (NEGATIVE) mg/dL Urine Glucose (UA) NEGATIVE (NEGATIVE) mg/dL Urine Ketones NEGATIVE (NEGATIVE) mg/dL Urine Occult Blood NEGATIVE (NEGATIVE) Urine Nitrite NEGATIVE (NEGATIVE) Urine Bilirubin NEGATIVE (NEGATIVE) Urine Urobilinogen 0.2 (<2.0) EU/dL Ur Leukocyte Esterase NEGATIVE (NEGATIVE) SARS-CoV-2 RNA (RT-PCR) (NEGATIVE) Blood Type Antibody Screen 03/27/20 03/27/20 03/27/20 Range/Units 03:22 03:22 05:20 WBC (4.0-11.0) K/uL RBC (4.30-5.90) M/uL Hgb (12.0-16.0) g/dL Hct (36.0-46.0) % MCV (80.0-98.0) fL MCH (27.0-32.0) pg MCHC (31.0-37.0) g/dL RDW Std Deviation (28.0-62.0) fl RDW Coeff of Anatoliy (11.0-15.0) % Plt Count (150-400) K/uL MPV (7.40-12.00) fL Neut % (Auto) (48.0-80.0) % Lymph % (Auto) (16.0-40.0) % [place] % (Auto) (0.0-15.0) % Eos % (Auto) (0.0-7.0) % Baso % (Auto) (0.0-1.5) % Neut # (Auto) (1.4-5.7) K/uL Lymph # (Auto) (0.6-2.4) K/uL [place] # (Auto) (0.0-0.8) K/uL Eos # (Auto) (0.0-0.7) K/uL Baso # (Auto) (0.0-0.1) K/uL Nucleated RBC % /100WBC Nucleated RBCs # K/uL Lactate (0.20-2.00) mmol/L Sodium 140 (136-145) mmol/L Potassium 3.5 (3.5-5.1) mmol/L Chloride 105 (98-107) mmol/L Carbon Dioxide 25.7 (21.0-32.0) mmol/L BUN 7 (7.0-18.0) mg/dL Creatinine 0.8 (0.6-1.0) mg/dL Est Cr Clr Drug Dosing 75.48 mL/min Estimated GFR (MDRD) > 60.0 ml/min Glucose 105 (74-106) mg/dL Calcium 8.2 L (8.5-10.1) mg/dL Total Bilirubin 0.3 (0.2-1.0) mg/dL AST 12 L (15-37) IU/L ALT 16 (14-63) IU/L Alkaline Phosphatase 70 (46-116) U/L Total Protein 6.8 (6.4-8.2) g/dL Albumin 3.8 (3.4-5.0) g/dL Globulin 3.0 (2.6-4.0) g/dL Albumin/Globulin Ratio 1.3 (0.9-1.6) Lipase 40 L (73-393) U/L HCG, Qual NEGATIVE (NEG) Urine Color Urine Appearance Urine pH (5.0-8.0) Ur Specific [place] (1.001-1.035) Urine Protein (NEGATIVE) mg/dL Urine Glucose (UA) (NEGATIVE) mg/dL Urine Ketones (NEGATIVE) mg/dL Urine Occult Blood (NEGATIVE) Urine Nitrite (NEGATIVE) Urine Bilirubin (NEGATIVE) Urine Urobilinogen (<2.0) EU/dL Ur Leukocyte Esterase (NEGATIVE) SARS-CoV-2 RNA (RT-PCR) (NEGATIVE) Blood Type O POSITIVE Antibody Screen NEGATIVE 03/27/20 Range/Units 05:20 WBC (4.0-11.0) K/uL RBC (4.30-5.90) M/uL Hgb (12.0-16.0) g/dL Hct (36.0-46.0) % MCV (80.0-98.0) fL MCH (27.0-32.0) pg MCHC (31.0-37.0) g/dL RDW Std Deviation (28.0-62.0) fl RDW Coeff of Anatoliy (11.0-15.0) % Plt Count (150-400) K/uL MPV (7.40-12.00) fL Neut % (Auto) (48.0-80.0) % Lymph % (Auto) (16.0-40.0) % [place] % (Auto) (0.0-15.0) % Eos % (Auto) (0.0-7.0) % Baso % (Auto) (0.0-1.5) % Neut # (Auto) (1.4-5.7) K/uL Lymph # (Auto) (0.6-2.4) K/uL [place] # (Auto) (0.0-0.8) K/uL Eos # (Auto) (0.0-0.7) K/uL Baso # (Auto) (0.0-0.1) K/uL Nucleated RBC % /100WBC Nucleated RBCs # K/uL Lactate (0.20-2.00) mmol/L Sodium (136-145) mmol/L Potassium (3.5-5.1) mmol/L Chloride (98-107) mmol/L Carbon Dioxide (21.0-32.0) mmol/L BUN (7.0-18.0) mg/dL Creatinine (0.6-1.0) mg/dL Est Cr Clr Drug Dosing mL/min Estimated GFR (MDRD) ml/min Glucose (74-106) mg/dL Calcium (8.5-10.1) mg/dL Total Bilirubin (0.2-1.0) mg/dL AST (15-37) IU/L ALT (14-63) IU/L Alkaline Phosphatase (46-116) U/L Total Protein (6.4-8.2) g/dL Albumin (3.4-5.0) g/dL Globulin (2.6-4.0) g/dL Albumin/Globulin Ratio (0.9-1.6) Lipase (73-393) U/L HCG, Qual (NEG) Urine Color Urine Appearance Urine pH (5.0-8.0) Ur Specific [place] (1.001-1.035) Urine Protein (NEGATIVE) mg/dL Urine Glucose (UA) (NEGATIVE) mg/dL Urine Ketones (NEGATIVE) mg/dL Urine Occult Blood (NEGATIVE) Urine Nitrite (NEGATIVE) Urine Bilirubin (NEGATIVE) Urine Urobilinogen (<2.0) EU/dL Ur Leukocyte Esterase (NEGATIVE) SARS-CoV-2 RNA (RT-PCR) NEGATIVE (NEGATIVE) Blood Type Antibody Screen Result Diagrams: 03/27/20 03:22 03/27/20 03:22 Sam Results Last 24 hrs: Microbiology 03/27/20 04:05 Anaerobic Blood Culture - Final Blood - Venous - Lab Draw Sepsis Event Note - Evaluation Sepsis Screening Result: No Definite Risk - Focused Exam Vital Signs: Vital Signs Temp Pulse Resp BP Pulse Ox 03/27/20 08:00 36.4 C 69 12 98/56 L 98 03/27/20 06:05 36.9 C 68 16 106/58 L 99 03/27/20 05:00 91 14 118/80 98 03/27/20 03:04 36.0 C L 93 18 128/93 H 100 Date Exam was Performed: 03/27/20 Time Exam was Performed: 10:11 - Problem List (1) Acute appendicitis SNOMED Code(s): 47528613 ICD Code: K35.80 - UNSPECIFIED ACUTE APPENDICITIS Status: Acute Current Visit: Yes Qualifiers: Acute appendicitis type: unspecified acute appendicitis type Qualified Code(s): K35.80 - Unspecified acute appendicitis Problem List Initiated/Reviewed/Updated: Yes Orders Last 24hrs: Active Orders 24 hr Category Date Time Status Admission Status [Patient Status] [ADT] Stat ADT 03/27/20 05:11 Active Bradycardia-Neuroaxis [employer] [RC] ROUTINE Care 03/27/20 08:00 Active Hypertension-Neuroaxis [employer] [RC] ROUTINE Care 03/27/20 08:00 Active Hypotension-Neuroaxis [employer] [RC] ROUTINE Care 03/27/20 08:00 Active Pulse Oximetry [RC] ASDIRECTED Care 03/27/20 03:06 Active NPO [Nothing Per Oral Diet] [DIET] Diet 03/27/20 Breakfast Active Nothing per Oral Now Diet [DIET] Diet 03/27/20 Breakfast Active CULTURE BLOOD [BC] Stat Lab 03/27/20 03:48 Received CULTURE BLOOD [BC] Stat Lab 03/27/20 04:05 Results HYDROmorphone [Dilaudid] Med 03/27/20 05:22 Active 0.5 mg IVPUSH Q1H PRN Lactated Ringers [Ringers, Lactated] 1,000 ml Med 03/27/20 05:30 Active IV ASDIRECTED Ondansetron [Zofran] Med 03/27/20 05:56 Active 4 mg IVPUSH Q6H PRN Sodium Chloride 0.9% [Saline Flush] Med 03/27/20 03:06 Active 10 ml FLUSH ASDIRECTED PRN Sodium Chloride 0.9% [Saline Flush] Med 03/27/20 03:06 Active 2.5 ml FLUSH ASDIRECTED PRN fentaNYL [Sublimaze] Med 03/27/20 08:00 Active 50 mcg IVPUSH Q5M PRN Blood Culture x2 Reflex Set [OM.PC] Stat Oth 03/27/20 03:36 Ordered Saline Lock Insert [OM.PC] Stat Oth 03/27/20 03:06 Ordered Medication Orders Fentanyl (Sublimaze) 50 mcg IVPUSH Q5M PRN PRN Reason: Pain (severe 7-10) Stop: 03/28/20 08:00 Hydromorphone HCl (Dilaudid) 0.5 mg IVPUSH Q1H PRN PRN Reason: Abdominal Pain Last Admin: 03/27/20 07:52 Dose: 0.5 mg Documented by: LUZMARIA Lactated Ringer's (Ringers, Lactated) 1,000 mls @ 125 mls/hr IV ASDIRECTED JOSEPH Last Admin: 03/27/20 06:17 Dose: 125 mls/hr Documented by: GEORGI Ondansetron HCl (Zofran) 4 mg IVPUSH Q6H PRN PRN Reason: Nausea/Vomiting Sodium Chloride (Saline Flush) 10 ml FLUSH ASDIRECTED PRN PRN Reason: Keep Vein Open Sodium Chloride (Saline Flush) 2.5 ml FLUSH ASDIRECTED PRN PRN Reason: Keep Vein Open Assessment/Plan Comment:: The patient and I discussed the pathophysiology of acute appendicitis. The treatment is appendectomy. I will attempt this laparoscopically but will convert to open if I cannot perform it safely. We discussed the expected hospital course should she have ruptured vs non-ruptured appendicitis. She and I talked about risks including bleeding, infection or damage to surrounding structures. She verbalized understanding and wishes to proceed.
[2020-03-27] MEDS ORDERED: Piperacillin/Tazobactam 3.375 GM in Sodium Chloride 0.9% 50 ML IV SCH (10:15)
[2020-03-27] MEDS ORDERED: fentaNYL 250 MCG/5 ML SDV ONE (10:59)
[2020-03-27] MEDS ORDERED: Midazolam 1 MG/ML 2 ML SDV ONE (11:19)
[2020-03-27] MEDS ORDERED: fentaNYL 100 MCG/2 ML SDV ONE (11:19)
[2020-03-27] MEDS ORDERED: Glycopyrrolate 0.2 MG/ML SDV ONE (11:28)
[2020-03-27] MEDS ORDERED: HYDROmorphone 1 MG/ML Syringe IVPUSH ONE (12:30)
--- NOTE | 2020-03-27 12:51 | PCM.OPNOTE ---
- General Post-Op/Procedure Note Date of Surgery/Procedure: 03/27/20 Operative Procedure(s): Laparoscopic appendectomy Findings: Enlarged and inflamed appendix. No evidence of rupture. Pre Op Diagnosis: Appendicitis Post-Op Diagnosis: appendicitis Anesthesia Technique: General ET Tube Primary Surgeon: Kadie White Fluid Replacement, Intraop: 10,000 Output, Urine Amount: 200 EBL in mLs: 5 Condition: Good
[2020-03-27] MEDS ORDERED: Acetaminophen/oxyCODONE 325-5 MG Tab PO PRN (12:52)
--- NOTE | 2020-03-27 13:10 | PCM.POSTAN ---
POST ANESTHESIA ASSESSMENT - MENTAL STATUS Mental Status: Alert, Oriented - VITAL SIGNS Vital Signs: Last Vital Signs Temp 97.0 F 03/27/20 11:54 Pulse 61 03/27/20 13:00 Resp 11 L 03/27/20 13:00 BP 112/75 03/27/20 13:00 Pulse Ox 96 03/27/20 13:00 - RESPIRATORY Respiratory Status: Respiratory Rate WNL, Airway Patent, O2 Saturation Stable - CARDIOVASCULAR CV Status: Pulse Rate WNL, Blood Pressure Stable - GASTROINTESTINAL GI Status: No Symptoms - POST OP HYDRATION Hydration Status: Adequate & Stable
[2020-03-27] MEDS ORDERED: Cyclobenzaprine 5 MG Tab PO SCH (14:00)
--- NOTE | 2020-03-27 16:02 | PCM.SURGPN ---
- General Info Date of Service: 03/27/20 Date of Surgery/Procedure: 03/27/20 POD#: 0 Functional Status: Reports: Pain Controlled, Tolerating Diet, Ambulating, Urinating. Denies: New Symptoms - Review of Systems General: Reports: No Symptoms HEENT: Reports: No Symptoms Pulmonary: Reports: No Symptoms Cardiovascular: Reports: No Symptoms Gastrointestinal: Reports: No Symptoms Genitourinary: Reports: No Symptoms Musculoskeletal: Reports: No Symptoms - Patient Data Vitals - Most Recent: Last Vital Signs Temp 37 C 03/27/20 14:50 Pulse 97 03/27/20 15:20 Resp 18 03/27/20 15:20 BP 138/81 03/27/20 15:20 Pulse Ox 99 03/27/20 15:20 Weight - Most Recent: 49.4 kg I&O - Last 24 Hours: Intake & Output 03/27/20 03/27/20 03/27/20 06:59 14:59 22:59 Intake Total 54746 Output Total 400 Balance 20352 Lab Results Last 24 Hrs: Laboratory Results - last 24 hr 03/27/20 03/27/20 03/27/20 Range/Units 03:10 03:22 03:22 WBC 17.66 H (4.0-11.0) K/uL RBC 4.41 (4.30-5.90) M/uL Hgb 13.9 (12.0-16.0) g/dL Hct 41.7 (36.0-46.0) % MCV 94.6 (80.0-98.0) fL MCH 31.5 (27.0-32.0) pg MCHC 33.3 (31.0-37.0) g/dL RDW Std Deviation 41.7 (28.0-62.0) fl RDW Coeff of Anatoliy 12 (11.0-15.0) % Plt Count 258 (150-400) K/uL MPV 11.10 (7.40-12.00) fL Neut % (Auto) 86.4 H (48.0-80.0) % Lymph % (Auto) 7.0 L (16.0-40.0) % Davidson % (Auto) 5.9 (0.0-15.0) % Eos % (Auto) 0.5 (0.0-7.0) % Baso % (Auto) 0.2 (0.0-1.5) % Neut # (Auto) 15.3 H (1.4-5.7) K/uL Lymph # (Auto) 1.2 (0.6-2.4) K/uL Davidson # (Auto) 1.1 H (0.0-0.8) K/uL Eos # (Auto) 0.1 (0.0-0.7) K/uL Baso # (Auto) 0.0 (0.0-0.1) K/uL Nucleated RBC % 0.0 /100WBC Nucleated RBCs # 0 K/uL Lactate 1.2 (0.20-2.00) mmol/L Sodium (136-145) mmol/L Potassium (3.5-5.1) mmol/L Chloride (98-107) mmol/L Carbon Dioxide (21.0-32.0) mmol/L BUN (7.0-18.0) mg/dL Creatinine (0.6-1.0) mg/dL Est Cr Clr Drug Dosing mL/min Estimated GFR (MDRD) ml/min Glucose (74-106) mg/dL Calcium (8.5-10.1) mg/dL Total Bilirubin (0.2-1.0) mg/dL AST (15-37) IU/L ALT (14-63) IU/L Alkaline Phosphatase (46-116) U/L Total Protein (6.4-8.2) g/dL Albumin (3.4-5.0) g/dL Globulin (2.6-4.0) g/dL Albumin/Globulin Ratio (0.9-1.6) Lipase (73-393) U/L HCG, Qual (NEG) Urine Color YELLOW Urine Appearance CLEAR Urine pH 6.5 (5.0-8.0) Ur Specific Sa[place] 1.025 (1.001-1.035) Urine Protein NEGATIVE (NEGATIVE) mg/dL Urine Glucose (UA) NEGATIVE (NEGATIVE) mg/dL Urine Ketones NEGATIVE (NEGATIVE) mg/dL Urine Occult Blood NEGATIVE (NEGATIVE) Urine Nitrite NEGATIVE (NEGATIVE) Urine Bilirubin NEGATIVE (NEGATIVE) Urine Urobilinogen 0.2 (<2.0) EU/dL Ur Leukocyte Esterase NEGATIVE (NEGATIVE) SARS-CoV-2 RNA (RT-PCR) (NEGATIVE) Blood Type Antibody Screen 03/27/20 03/27/20 03/27/20 Range/Units 03:22 03:22 05:20 WBC (4.0-11.0) K/uL RBC (4.30-5.90) M/uL Hgb (12.0-16.0) g/dL Hct (36.0-46.0) % MCV (80.0-98.0) fL MCH (27.0-32.0) pg MCHC (31.0-37.0) g/dL RDW Std Deviation (28.0-62.0) fl RDW Coeff of Anatoliy (11.0-15.0) % Plt Count (150-400) K/uL MPV (7.40-12.00) fL Neut % (Auto) (48.0-80.0) % Lymph % (Auto) (16.0-40.0) % Davidson % (Auto) (0.0-15.0) % Eos % (Auto) (0.0-7.0) % Baso % (Auto) (0.0-1.5) % Neut # (Auto) (1.4-5.7) K/uL Lymph # (Auto) (0.6-2.4) K/uL Davidson # (Auto) (0.0-0.8) K/uL Eos # (Auto) (0.0-0.7) K/uL Baso # (Auto) (0.0-0.1) K/uL Nucleated RBC % /100WBC Nucleated RBCs # K/uL Lactate (0.20-2.00) mmol/L Sodium 140 (136-145) mmol/L Potassium 3.5 (3.5-5.1) mmol/L Chloride 105 (98-107) mmol/L Carbon Dioxide 25.7 (21.0-32.0) mmol/L BUN 7 (7.0-18.0) mg/dL Creatinine 0.8 (0.6-1.0) mg/dL Est Cr Clr Drug Dosing 75.48 mL/min Estimated GFR (MDRD) > 60.0 ml/min Glucose 105 (74-106) mg/dL Calcium 8.2 L (8.5-10.1) mg/dL Total Bilirubin 0.3 (0.2-1.0) mg/dL AST 12 L (15-37) IU/L ALT 16 (14-63) IU/L Alkaline Phosphatase 70 (46-116) U/L Total Protein 6.8 (6.4-8.2) g/dL Albumin 3.8 (3.4-5.0) g/dL Globulin 3.0 (2.6-4.0) g/dL Albumin/Globulin Ratio 1.3 (0.9-1.6) Lipase 40 L (73-393) U/L HCG, Qual NEGATIVE (NEG) Urine Color Urine Appearance Urine pH (5.0-8.0) Ur Specific Saunemin (1.001-1.035) Urine Protein (NEGATIVE) mg/dL Urine Glucose (UA) (NEGATIVE) mg/dL Urine Ketones (NEGATIVE) mg/dL Urine Occult Blood (NEGATIVE) Urine Nitrite (NEGATIVE) Urine Bilirubin (NEGATIVE) Urine Urobilinogen (<2.0) EU/dL Ur Leukocyte Esterase (NEGATIVE) SARS-CoV-2 RNA (RT-PCR) (NEGATIVE) Blood Type O POSITIVE Antibody Screen NEGATIVE 03/27/20 Range/Units 05:20 WBC (4.0-11.0) K/uL RBC (4.30-5.90) M/uL Hgb (12.0-16.0) g/dL Hct (36.0-46.0) % MCV (80.0-98.0) fL MCH (27.0-32.0) pg MCHC (31.0-37.0) g/dL RDW Std Deviation (28.0-62.0) fl RDW Coeff of Anatoliy (11.0-15.0) % Plt Count (150-400) K/uL MPV (7.40-12.00) fL Neut % (Auto) (48.0-80.0) % Lymph % (Auto) (16.0-40.0) % Davidson % (Auto) (0.0-15.0) % Eos % (Auto) (0.0-7.0) % Baso % (Auto) (0.0-1.5) % Neut # (Auto) (1.4-5.7) K/uL Lymph # (Auto) (0.6-2.4) K/uL Davidson # (Auto) (0.0-0.8) K/uL Eos # (Auto) (0.0-0.7) K/uL Baso # (Auto) (0.0-0.1) K/uL Nucleated RBC % /100WBC Nucleated RBCs # K/uL Lactate (0.20-2.00) mmol/L Sodium (136-145) mmol/L Potassium (3.5-5.1) mmol/L Chloride (98-107) mmol/L Carbon Dioxide (21.0-32.0) mmol/L BUN (7.0-18.0) mg/dL Creatinine (0.6-1.0) mg/dL Est Cr Clr Drug Dosing mL/min Estimated GFR (MDRD) ml/min Glucose (74-106) mg/dL Calcium (8.5-10.1) mg/dL Total Bilirubin (0.2-1.0) mg/dL AST (15-37) IU/L ALT (14-63) IU/L Alkaline Phosphatase (46-116) U/L Total Protein (6.4-8.2) g/dL Albumin (3.4-5.0) g/dL Globulin (2.6-4.0) g/dL Albumin/Globulin Ratio (0.9-1.6) Lipase (73-393) U/L HCG, Qual (NEG) Urine Color Urine Appearance Urine pH (5.0-8.0) Ur Specific Sa[place] (1.001-1.035) Urine Protein (NEGATIVE) mg/dL Urine Glucose (UA) (NEGATIVE) mg/dL Urine Ketones (NEGATIVE) mg/dL Urine Occult Blood (NEGATIVE) Urine Nitrite (NEGATIVE) Urine Bilirubin (NEGATIVE) Urine Urobilinogen (<2.0) EU/dL Ur Leukocyte Esterase (NEGATIVE) SARS-CoV-2 RNA (RT-PCR) NEGATIVE (NEGATIVE) Blood Type Antibody Screen Sam Results Last 24 Hrs: Microbiology 03/27/20 04:05 Anaerobic Blood Culture - Final Blood - Venous - Lab Draw Med Orders - Current: Current Medications Cyclobenzaprine HCl (Flexeril) 5 mg PO TID [facility] Last Admin: 03/27/20 13:52 Dose: 5 mg Documented by: Fentanyl (Sublimaze) 50 mcg IVPUSH Q5M PRN PRN Reason: Pain (severe 7-10) Stop: 03/28/20 08:00 Last Admin: 03/27/20 12:20 Dose: 50 mcg Documented by: Hydromorphone HCl (Dilaudid) 0.5 mg IVPUSH Q1H PRN PRN Reason: Abdominal Pain Last Admin: 03/27/20 07:52 Dose: 0.5 mg Documented by: Hydromorphone HCl (Dilaudid) 1 mg IVPUSH Q1H PRN PRN Reason: Abdominal Pain Lactated Ringer's (Ringers, Lactated) 1,000 mls @ 125 mls/hr IV ASDIRECTED JOSEPH Last Admin: 03/27/20 06:17 Dose: 125 mls/hr Documented by: Ketorolac Tromethamine (Toradol) 10 mg PO Q6H [facility] Stop: 04/01/20 18:01 Ondansetron HCl (Zofran) 4 mg IVPUSH Q6H PRN PRN Reason: Nausea/Vomiting Oxycodone/Acetaminophen (Percocet 325-5 Mg) 2 tab PO Q4H PRN PRN Reason: Pain (severe 7-10) Last Admin: 03/27/20 15:14 Dose: 2 tab Documented by: Sodium Chloride (Saline Flush) 10 ml FLUSH ASDIRECTED PRN PRN Reason: Keep Vein Open Sodium Chloride (Saline Flush) 2.5 ml FLUSH ASDIRECTED PRN PRN Reason: Keep Vein Open Discontinued Medications Bupivacaine HCl (Marcaine 0.5%) Confirm Administered Dose 30 ml .ROUTE .STK-MED ONE Stop: 03/27/20 09:51 Fentanyl (Fentanyl) 50 mcg IVPUSH ONETIME ONE Stop: 03/27/20 03:07 Last Admin: 03/27/20 03:23 Dose: 50 mcg Documented by: Fentanyl (Fentanyl) 50 mcg IVPUSH ONETIME ONE Stop: 03/27/20 05:23 Last Admin: 03/27/20 05:28 Dose: 50 mcg Documented by: Fentanyl (Fentanyl) Confirm Administered Dose 50 mcg .ROUTE .STK-MED ONE Stop: 03/27/20 05:24 Last Admin: 03/27/20 05:30 Dose: Not Given Documented by: Fentanyl (Sublimaze) Confirm Administered Dose 250 mcg .ROUTE .STK-MED ONE Stop: 03/27/20 11:00 Fentanyl (Sublimaze) Confirm Administered Dose 100 mcg .ROUTE .STK-MED ONE Stop: 03/27/20 11:20 Glycopyrrolate (Robinul) Confirm Administered Dose 0.4 mg .ROUTE .STK-MED ONE Stop: 03/27/20 11:29 Hydromorphone HCl (Dilaudid) 1 mg IVPUSH ONETIME ONE Stop: 03/27/20 12:31 Last Admin: 03/27/20 12:34 Dose: 1 mg Documented by: Lactated Ringer's (Ringers, Lactated) 1,000 mls @ 999 mls/hr IV .BOLUS ONE Stop: 03/27/20 04:06 Last Admin: 03/27/20 03:19 Dose: 999 mls/hr Documented by: Piperacillin Sod/Tazobactam (Sod 3.375 gm/ Sodium Chloride) 50 mls @ 100 mls/hr IV ONETIME ONE Stop: 03/27/20 05:33 Last Admin: 03/27/20 05:27 Dose: 100 mls/hr Documented by: Acetaminophen (Ofirmev) Confirm Administered Dose 100 mls @ as directed .ROUTE .STK-MED ONE Stop: 03/27/20 09:44 Piperacillin Sod/Tazobactam (Sod 3.375 gm/ Sodium Chloride) 50 mls @ 100 mls/hr IV Q6H JOSEPH Last Admin: 03/27/20 11:52 Dose: Not Given Documented by: Iopamidol (Isovue-370 (76%)) 65 ml IVPUSH ONETIME STA Stop: 03/27/20 05:52 Last Admin: 03/27/20 05:53 Dose: 65 ml Documented by: Ketamine HCl (Ketalar) Confirm Administered Dose 500 mg .ROUTE .STK-MED ONE Stop: 03/27/20 09:41 Midazolam HCl (Versed 1 Mg/Ml) Confirm Administered Dose 2 mg .ROUTE .STK-MED ONE Stop: 03/27/20 11:20 Ondansetron HCl (Zofran) 4 mg IVPUSH ONETIME ONE Stop: 03/27/20 03:07 Last Admin: 03/27/20 03:19 Dose: 4 mg Documented by: - Exam Wound/Incisions: Healing Well, Drainage (scant bloody drainage ) General: Alert, Oriented HEENT: Pupils Equal, Pupils Reactive Lungs: Normal Respiratory Effort Cardiovascular: Regular Rate GI/Abdominal Exam: Soft, Non-Tender, No Distention, No Mass Skin: Warm, Dry, Intact Sepsis Event Note - Evaluation Sepsis Screening Result: No Definite Risk - Focused Exam Vital Signs: Vital Signs Temp Pulse Pulse Resp BP Pulse Ox 03/27/20 15:20 97 18 138/81 99 03/27/20 14:50 37 C 63 18 140/62 99 03/27/20 14:20 60 17 138/65 96 03/27/20 14:05 36.6 C 61 16 141/62 H 98 03/27/20 13:50 60 16 115/65 98 03/27/20 13:35 58 L 16 120/83 96 03/27/20 13:20 36.2 C 59 L 14 123/81 97 03/27/20 13:00 61 11 L 112/75 96 03/27/20 12:55 57 L 10 L 122/79 97 03/27/20 12:50 55 L 11 L 116/79 98 03/27/20 12:45 61 11 L 123/78 99 03/27/20 12:40 58 L 10 L 124/72 99 03/27/20 12:35 63 11 L 135/79 99 03/27/20 12:30 66 10 L 128/77 100 03/27/20 12:25 66 12 132/81 100 03/27/20 12:20 67 10 L 120/82 100 03/27/20 12:15 85 119/82 03/27/20 12:10 76 15 130/80 100 03/27/20 12:05 83 11 L 125/83 100 03/27/20 12:00 78 9 L 125/92 H 100 03/27/20 11:54 36.1 C 10 L 116/68 100 03/27/20 08:00 36.4 C 69 12 98/56 L 98 03/27/20 06:05 36.9 C 68 16 106/58 L 99 03/27/20 05:00 91 14 118/80 98 Date Exam was Performed: 03/27/20 Time Exam was Performed: 15:59 - Problem List & Annotations (1) Acute appendicitis SNOMED Code(s): 12043584 Code(s): K35.80 - UNSPECIFIED ACUTE APPENDICITIS Status: Acute Current Visit: Yes Qualifiers: Acute appendicitis type: unspecified acute appendicitis type Qualified Code(s): K35.80 - Unspecified acute appendicitis - Problem List Review Problem List Initiated/Reviewed/Updated: Yes - My Orders Last 24 Hours: Active Orders 24 hr Category Date Time Status Admission Status [Patient Status] [ADT] Stat ADT 03/27/20 05:11 Active Pulse Oximetry [RC] ASDIRECTED Care 03/27/20 03:06 Active Regular Diet [DIET] Diet 03/27/20 Dinner Active CULTURE BLOOD [BC] Stat Lab 03/27/20 03:48 Received CULTURE BLOOD [BC] Stat Lab 03/27/20 04:05 Results Acetaminophen/oxyCODONE [Percocet 325-5 MG] Med 03/27/20 12:52 Active 2 tab PO Q4H PRN Cyclobenzaprine [Flexeril] Med 03/27/20 14:00 Active 5 mg PO TID HYDROmorphone [Dilaudid] Med 03/27/20 05:22 Active 0.5 mg IVPUSH Q1H PRN HYDROmorphone [Dilaudid] Med 03/27/20 12:52 Active 1 mg IVPUSH Q1H PRN Ketorolac [Toradol] Med 03/27/20 18:00 Active 10 mg PO Q6H Lactated Ringers [Ringers, Lactated] 1,000 ml Med 03/27/20 05:30 Active IV ASDIRECTED Ondansetron [Zofran] Med 03/27/20 05:56 Active 4 mg IVPUSH Q6H PRN Sodium Chloride 0.9% [Saline Flush] Med 03/27/20 03:06 Active 10 ml FLUSH ASDIRECTED PRN Sodium Chloride 0.9% [Saline Flush] Med 03/27/20 03:06 Active 2.5 ml FLUSH ASDIRECTED PRN fentaNYL [Sublimaze] Med 03/27/20 08:00 Active 50 mcg IVPUSH Q5M PRN Blood Culture x2 Reflex Set [OM.PC] Stat Oth 03/27/20 03:36 Ordered Saline Lock Insert [OM.PC] Stat Oth 03/27/20 03:06 Ordered Medication Orders Cyclobenzaprine HCl (Flexeril) 5 mg PO TID JOSEPH Last Admin: 03/27/20 13:52 Dose: 5 mg Documented by: ELISEVO Fentanyl (Sublimaze) 50 mcg IVPUSH Q5M PRN PRN Reason: Pain (severe 7-10) Stop: 03/28/20 08:00 Last Admin: 03/27/20 12:20 Dose: 50 mcg Documented by: SALLY Hydromorphone HCl (Dilaudid) 0.5 mg IVPUSH Q1H PRN PRN Reason: Abdominal Pain Last Admin: 03/27/20 07:52 Dose: 0.5 mg Documented by: LUZMARIA Hydromorphone HCl (Dilaudid) 1 mg IVPUSH Q1H PRN PRN Reason: Abdominal Pain Lactated Ringer's (Ringers, Lactated) 1,000 mls @ 125 mls/hr IV ASDIRECTED JOSEPH Last Admin: 03/27/20 06:17 Dose: 125 mls/hr Documented by: GEORGI Ketorolac Tromethamine (Toradol) 10 mg PO Q6H [facility] Stop: 04/01/20 18:01 Ondansetron HCl (Zofran) 4 mg IVPUSH Q6H PRN PRN Reason: Nausea/Vomiting Oxycodone/Acetaminophen (Percocet 325-5 Mg) 2 tab PO Q4H PRN PRN Reason: Pain (severe 7-10) Last Admin: 03/27/20 15:14 Dose: 2 tab Documented by: GIRISH Sodium Chloride (Saline Flush) 10 ml FLUSH ASDIRECTED PRN PRN Reason: Keep Vein Open Sodium Chloride (Saline Flush) 2.5 ml FLUSH ASDIRECTED PRN PRN Reason: Keep Vein Open - Plan Plan (Free Text/Narrative):: Patient is feeling well and pain is well controlled on oral medications. Will prescribe #20 percocet to go home with. Patient instructed not to take other narcotics while taking these. WIll also prescribe toradol 10mg q6hr scheduled for pain control. Instructed not to take other NSAIDs with this. Vitals are stable. She is ambulating and is tolerating a regular diet. If still stable at 6pm can discharge home.
[2020-03-27] MEDS ORDERED: Ketorolac 10 MG Tab PO SCH (18:00)
--- NOTE | 2020-03-27 18:31 | OR ---
SURGEON: KADIE WHITE MD DATE OF PROCEDURE: 03/27/2020 PREOPERATIVE DIAGNOSIS: Appendicitis. POSTOPERATIVE DIAGNOSIS: Appendicitis. PROCEDURE PERFORMED: Laparoscopic appendectomy. PRIMARY SURGEON: Kadie White MD ANESTHESIA: General endotracheal anesthesia. FLUID: 1000 mL of crystalloid. ESTIMATED BLOOD LOSS: 5 mL. URINE OUTPUT: 200 mL. FINDINGS: Grossly enlarged and inflamed appendix with no evidence of rupture. COMPLICATIONS: None. INDICATIONS: The patient is a 34-year-old female who presents with 1 day of abdominal pain. Workup in the emergency room revealed leukocytosis and CT scan of the abdomen and pelvis showed acute appendicitis with no evidence of rupture. The patient and I discussed the need for an appendectomy. I will attempt this laparoscopically, but should I be unable to perform it safely, I will convert to open. The patient and I discussed the expected perioperative course as well as the risks including bleeding, infection, or damage to surrounding structures. She verbalized understanding and wishes to proceed. PROCEDURE IN DETAIL: The patient was brought into the OR and placed on the OR table in supine position. A time-out was completed verifying the patient's name, age, date of , allergies, and procedure to be performed. General endotracheal anesthesia was induced. The left arm was tucked to the patient's side and a Jimenez catheter placed. The abdomen was prepped and draped in usual standard fashion. I anesthetized an area 2 fingerbreadths below the left subcostal margin in the midclavicular line with 0.5% Marcaine plain. An 11 blade was used to make a 1 cm incision over this area. A 5 mm optical trocar was used to gain entry into the left upper quadrant under direct visualization. All layers of the abdominal wall were visualized upon entry. The abdomen was insufflated, and I inspected the area underneath my initial trocar placement. The stomach was immediately below where I placed my first trocar. This had no evidence of damage. A 5 mm trocar was placed under direct visualization just left and lateral to the umbilicus and a 12 mm trocar was placed in similar fashion in the left lower quadrant. The patient was placed into Trendelenburg position and airplaned slightly to the left. I turned my attention to the right lower quadrant. I identified the cecum. I followed the tenia down to the base of the appendix. The appendix was retrocecal. I rotated the cecum medially and was able to grasp the body of the appendix. The appendix was then brought anteriorly. The tip of the appendix was grasped with an atraumatic grasper, and I inspected the appendix. There was no evidence of rupture, but it was grossly enlarged and inflamed, consistent with acute appendicitis. The appendiceal mesentery was taken down using a Harmonic scalpel. I performed this distal to proximal. When I got toward the base of the appendix, I identified the appendiceal artery. This was doubly clipped and then I used a Harmonic scalpel along the distal portion of the artery next to the body of the appendix. The remainder of the appendiceal mesentery attachments were taken down. Once I was assured that my appendix had been completely cleared away from all of its attachments, a photograph was taken. I then brought an endoscopic stapling device into the field. I stapled and transected across the base of the appendix using a 45 mm blue load of jessie. The appendix was then placed in an Endo Catch bag and removed through the 12 mm port site. I inspected my operative field. A small amount of irrigation was used and suctioned out. The field appeared hemostatic. There was a small amount of free fluid within the pelvis. This was suctioned out as well. A photograph was taken of the pelvis. The 12 mm trocar site was then closed using an interrupted 0 Vicryl suture using a Henri-Saad device. The 5 mm trocars were removed under direct visualization and the abdomen allowed to desufflate. The 12 mm trocar site was closed with interrupted 3-0 Vicryl sutures in the subcutaneous fat layer and the skin was closed with interrupted 4-0 Monocryl sutures. The 5 mm trocar sites were closed with interrupted 4-0 Monocryl sutures. Steri-Strips and sterile dressings were applied. The patient tolerated the procedure well and was transferred to the PACU in stable condition. All counts were complete and correct at the end of the case. SETH / ANTHONY /[id number]
--- NOTE | 2020-03-28 08:30 | PCM48HPAN ---
Post Anesthesia Note - EVALUATION WITHIN 48HRS OF ANESTHETIC Vital Signs in Normal Range: Yes Patient Participated in Evaluation: Yes Respiratory Function Stable: Yes Airway Patent: Yes Cardiovascular Function Stable: Yes Hydration Status Stable: Yes Pain Control Satisfactory: Yes Nausea and Vomiting Control Satisfactory: Yes Mental Status Recovered: Yes Vital Signs: Last Vital Signs Temp 36.8 C 03/27/20 17:20 Pulse 70 03/27/20 17:20 Resp 18 03/27/20 17:20 BP 127/72 03/27/20 17:20 Pulse Ox 99 03/27/20 17:20 - COMMENTS/OBSERVATIONS Free Text/Narrative:: Doing well. Was ready for discharge at appropriate time.
== END 2020-03-27 18:00 | disposition home or self-care (01) ==
LOC: MW.ED 02:53 → MW.SDS 05:11 → MW.MS 05:11 → MW.SDS 18:00
PROVIDERS: ATTEND Surgery
DX: K35.80 Unspecified acute appendicitis (principal); F17.210 Nicotine dependence, cigarettes, uncomplicated; Z11.59 Encounter for screening for other viral diseases; Z88.5 Allergy status to narcotic agent
CPT/HCPCS: 36415; 44970; 74177; 80053; 81003; 83605; 83690; 84703; 85025; 86850; 86900; 86901; 87040; 87635; 88304; 96365; 96375; 96376; 99285; A9270; C1776; J0131; J1170; J2250; J2405; J2543; J3010; J3490; J7050; J7120; Q9967; 00840; 99283; U0002

== ENCOUNTER 2020-07-03 06:37 | Day surgery (SDC) | payer BC, OTHER ==
[~2020-07-03 06:37] MED LIST: Lactated Ringers 1,000 ML IV SCH; Sodium Chloride 0.9% 10 ML SDV IV PRN; Sodium Chloride 0.9% 10 ML Syringe FLUSH PRN; Sodium Chloride 0.9% 2.5 ML Syringe FLUSH PRN; ceFAZolin 1 GM in Premix Bag 1 BAG IV ONE
[2020-07-03] MEDS ORDERED: Lidocaine 2% 5 ML SDV ONE (06:53)
[2020-07-03] MEDS ORDERED: Midazolam 1 MG/ML 2 ML SDV ONE (06:53)
[2020-07-03] MEDS ORDERED: Ondansetron 4 MG/2 ML SDV ONE (06:53)
[2020-07-03] MEDS ORDERED: fentaNYL 250 MCG/5 ML SDV ONE (06:53)
[2020-07-03] MEDS ORDERED: Propofol 200 MG/20 ML SDV ONE (06:53)
--- NOTE | 2020-07-03 07:15 | PCM.PREANE ---
Preanesthetic Assessment - Anesthesia/Transfusion/Family Hx Anesthesia History: Prior Anesthesia Without Reaction Family History of Anesthesia Reaction: No Transfusion History: Prior Transfusion Without Reaction Intubation History: Unknown - Review of Systems General: No Symptoms Pulmonary: No Symptoms Cardiovascular: No Symptoms Gastrointestinal: No Symptoms Neurological: No Symptoms Other: Reports: None - Physical Assessment Height: 5 ft 1 in Weight: 46.72 kg ASA Class: 2 Mental Status: Alert & Oriented x3 Airway Class: Mallampati = 2 Dentition: Reports: Normal Dentition Thyro-Mental Finger Breadths: 3 Mouth Opening Finger Breadths: 2 (small mouth) ROM/Head Extension: Full Lungs: Clear to Auscultation, Normal Respiratory Effort Cardiovascular: Regular Rate - Lab Values: Laboratory Last Values Urine HCG, Qual NEGATIVE (NEGATIVE) 07/03/20 06:50 - Allergies Allergies/Adverse Reactions: Allergies Allergy/AdvReac Type Severity Reaction Status Date / Time codeine Allergy Vomiting Verified 06/27/20 08:45 - Blood Blood Available: No - Anesthesia Plan Pre-Op Medication Ordered: None - Acknowledgements Anesthesia Type Planned: General Anesthesia Pt an Appropriate Candidate for the Planned Anesthesia: Yes Alternatives and Risks of Anesthesia Discussed w Pt/Guardian: Yes Pt/Guardian Understands and Agrees with Anesthesia Plan: Yes PreAnesthesia Questionnaire HEENT History: Reports: None Cardiovascular History: Reports: Other (See Below) Other Cardiovascular History: Palpitations, not for many years. Elevated blood pressure dinora - not diagnosed with HTN Respiratory History: Reports: Other (See Below) Other Respiratory History: seasonal allergies Gastrointestinal History: Reports: Other (See Below) Other Gastrointestinal History: some heartburn- does not take any medications Genitourinary History: Reports: Other (See Below) Other Genitourinary History: Several D&Cs BELT TENDER History: Reports: Musculoskeletal History: Reports: Back Pain, Chronic, Fracture Other Musculoskeletal History: hx of fx left wrist Neurological History: Reports: Migraines Psychiatric History: Reports: None Endocrine/Metabolic History: Reports: None Hematologic History: Reports: None Immunologic History: Reports: None Oncologic (Cancer) History: Reports: None Dermatologic History: Reports: None - Infectious Disease History Infectious Disease History: Reports: None - Past Surgical History Head Surgeries/Procedures: Reports: None GI Surgical History: Reports: Appendectomy (laparoscopic) Female Surgical History: Reports: D&C Other Female Surgeries/Procedures: states has had multiple D&C's - SUBSTANCE USE Smoking Status *Q: Current Every Day Smoker (1 ppd) Tobacco Use Within Last Twelve Months: Cigarettes Recreational Drug Use History: No - HOME MEDS Home Medications: Home Meds oxyCODONE 5 mg PO Q6HR PRN 09/25/17 [History] Ondansetron [Ondansetron ODT] 4 mg PO ASDIRECTED PRN 03/27/20 [History] Rizatriptan Benzoate [Rizatriptan] 10 mg PO ASDIRECTED PRN 03/27/20 [History] Levocetirizine Dihydrochloride 5 mg PO DAILY PRN 05/23/20 [History] - CURRENT (IN HOUSE) MEDS Current Meds: Current Medications Lactated Ringer's (Ringers, Lactated) 1,000 mls @ 125 mls/hr IV ASDIRECTED JOSEPH Sodium Chloride (Saline Flush) 2.5 ml FLUSH ASDIRECTED PRN PRN Reason: Keep Vein Open Sodium Chloride (Normal Saline) 10 ml IV ASDIRECTED PRN PRN Reason: IV Use Sodium Chloride (Saline Flush) 10 ml FLUSH ASDIRECTED PRN PRN Reason: Keep Vein Open Discontinued Medications Fentanyl (Sublimaze) Confirm Administered Dose 250 mcg .ROUTE .STK-MED ONE Stop: 07/03/20 06:54 Cefazolin Sodium/Dextrose 1 gm (/ Premix) 50 mls @ 100 mls/hr IV ONETIME ONE Stop: 06/30/20 11:59 Lidocaine (Xylocaine-Mpf 2%) Confirm Administered Dose 5 ml .ROUTE .STK-MED ONE Stop: 07/03/20 06:54 Midazolam HCl (Versed 1 Mg/Ml) Confirm Administered Dose 2 mg .ROUTE .STK-MED ONE Stop: 07/03/20 06:54 Ondansetron HCl (Zofran) Confirm Administered Dose 4 mg .ROUTE .STK-MED ONE Stop: 07/03/20 06:54 Propofol (Diprivan 20 Ml) Confirm Administered Dose 200 mg .ROUTE .STK-MED ONE Stop: 07/03/20 06:54
[2020-07-03] MEDS ORDERED: Octyl 2-Cyanoacrylate 1 Tube ONE (07:21)
[2020-07-03] MEDS ORDERED: Bupivacaine 0.5% 10 ML SDV ONE (07:21)
[2020-07-03] MEDS ORDERED: Sodium Chloride 0.9% 20 ML ONE (08:00)
[2020-07-03] MEDS ORDERED: ceFAZolin 1 GM Vial ONE (08:00)
[2020-07-03] MEDS ORDERED: Albuterol 0.083% 2.5 MG/3 ML Neb Soln NEB PRN (08:19)
[2020-07-03] MEDS ORDERED: Atropine 0.1 MG/ML 10 ML Syringe IVPUSH PRN ×2 (08:19)
[2020-07-03] MEDS ORDERED: EPINEPHrine 1:10,000 1 MG/10 ML Syringe IVPUSH PRN (08:19)
[2020-07-03] MEDS ORDERED: 50% Dextrose in Water 50 ML Syringe IVPUSH PRN (08:19)
[2020-07-03] MEDS ORDERED: Naloxone 0.4 MG/ML Syringe IVPUSH PRN (08:19)
--- NOTE | 2020-07-03 08:39 | PCM.OPNOTE ---
- General Post-Op/Procedure Note Date of Surgery/Procedure: 07/03/20 Operative Procedure(s): Umbilical hernia repair. Findings: 1 cm umbilical fascial defect with incarcerated fat tissue. Pre Op Diagnosis: Umbilical hernia. Post-Op Diagnosis: Umbilical hernia. Anesthesia Technique: General LMA Primary Surgeon: Kadie White Fluid Replacement, Intraop: 500 EBL in mLs: 3 Complications: None. Condition: Stable
[2020-07-03] MEDS: fentaNYL 100 MCG/2 ML SDV IVPUSH PRN ×2 (08:55→09:00)
[2020-07-03] MEDS ORDERED: Ketorolac 30 MG/ML SDV IVPUSH ONE (09:04)
--- NOTE | 2020-07-03 09:22 | PCM.POSTAN ---
POST ANESTHESIA ASSESSMENT - MENTAL STATUS Mental Status: Alert, Oriented - VITAL SIGNS Vital Signs: Last Vital Signs Temp 36.6 C 07/03/20 08:36 Pulse 68 07/03/20 09:12 Resp 12 07/03/20 09:12 BP 106/71 07/03/20 09:12 Pulse Ox 100 07/03/20 09:12 - RESPIRATORY Respiratory Status: Respiratory Rate WNL, Airway Patent, O2 Saturation Stable - CARDIOVASCULAR CV Status: Pulse Rate WNL, Blood Pressure Stable - GASTROINTESTINAL GI Status: No Symptoms - PAIN Pain Score: 4 - POST OP HYDRATION Hydration Status: Adequate & Stable - OBSERVATIONS Free Text/Narrative:: No anesthesia problems
--- NOTE | 2020-07-03 10:20 | PCM48HPAN ---
Post Anesthesia Note - EVALUATION WITHIN 48HRS OF ANESTHETIC Vital Signs in Normal Range: Yes Patient Participated in Evaluation: Yes Respiratory Function Stable: Yes Airway Patent: Yes Cardiovascular Function Stable: Yes Hydration Status Stable: Yes Pain Control Satisfactory: Yes Nausea and Vomiting Control Satisfactory: Yes Mental Status Recovered: Yes Vital Signs: Last Vital Signs Temp 36.6 C 07/03/20 08:36 Pulse 68 07/03/20 09:12 Resp 12 07/03/20 09:12 BP 106/71 07/03/20 09:12 Pulse Ox 100 07/03/20 09:12 - COMMENTS/OBSERVATIONS Free Text/Narrative:: No anesthesia problems
--- NOTE | 2020-07-03 12:53 | OR ---
SURGEON: KADIE WHITE MD DATE OF PROCEDURE: 07/03/2020 PREOPERATIVE DIAGNOSIS: Incarcerated umbilical hernia. POSTOPERATIVE DIAGNOSIS: Incarcerated umbilical hernia. PROCEDURE PERFORMED: Umbilical hernia repair. PRIMARY SURGEON: Kadie White MD [employer] EQUIPMENT TECHNICIAN: buyer assistant: Moreno Cameron, resident care associate. ANESTHESIA: General LMA. FLUIDS: 500 mL of crystalloid. ESTIMATED BLOOD LOSS: 3 mL. FINDINGS: 1 cm umbilical fascial defect containing incarcerated preperitoneal fat. COMPLICATIONS: None. INDICATIONS: The patient is a 34-year-old female who presented to clinic with symptomatic umbilical hernia. I explained the need for an umbilical hernia repair. The patient and I discussed the procedure; expected perioperative course; and risks including bleeding, infection, or damage to surrounding structures. The patient verbalized understanding and wishes to proceed. PROCEDURE IN DETAIL: The patient was brought into the OR and placed on the OR table in supine position. A time-out was completed verifying the patient's name, age, date of , allergies, and procedure to be performed. General LMA anesthesia was induced. The abdomen was prepped and draped in usual standard fashion. I anesthetized the umbilicus with 0.5% Marcaine plain. An incision was made along the supraumbilical fold using a 15 blade. Cautery was used to dissect down to the subcutaneous fat. I immediately encountered a hernia sac. Using Metzenbaum scissors, I dissected this free of the overlying skin as well as from the surrounding subcutaneous fat. I did get into the hernia sac. It appeared to contain incarcerated preperitoneal fat. I dissected the hernia sac free from the surrounding structures and transected a piece of this. I then took down all of the adhesions inside the hernia sac between the fat and the sac itself. I cleared away the tissue all the way down to the fascial defect. The fascial defect was small. I was able to take down adhesions around this and reduce the fat back into the abdomen. The fascial defect measured 1 cm in size. I ensured that all of the tissue underneath the fascia was cleared away and then I closed the defect using a [id number] stitch using a 0 Ethibond suture. The patient performed a Valsalva maneuver and the repair appeared to be intact. Hemostasis was achieved with electrocautery. I then used an interrupted 3-0 Vicryl stitch to bring the skin together along the subcutaneous fat layer. The skin was then closed with a running 4-0 Monocryl stitch. Dermabond and sterile dressings were applied. All counts were complete and correct at the end of the case. The patient tolerated the procedure well and was transferred to the PACU in stable condition. SETH CRUZ /[id number]
== END 2020-07-03 10:35 | disposition home or self-care (01) ==
LOC: MW.SDS 06:37
PROVIDERS: ATTEND Surgery
DX: K42.0 Umbilical hernia with obstruction, without gangrene (principal); G43.909 Migraine, unspecified, not intractable, without status migrainosus; F17.210 Nicotine dependence, cigarettes, uncomplicated; Z88.8 Allergy status to other drugs, medicaments and biological substances; Z79.899 Other long term (current) drug therapy; Z90.89 Acquired absence of other organs; Z88.5 Allergy status to narcotic agent
CPT/HCPCS: 49587; 81025; A9270; J0690; J1885; J2001; J2250; J2405; J2704; J3010; J3490; J7120; 00750